=== PATIENT | female | born 1955 | race Caucasian/White ===

== ENCOUNTER → 2018-12-11 09:52 | Outpatient (CLI) | payer MEDICARE, SELFPAY ==
--- NOTE | 2018-12-11 09:54 | US_ITS ---
US Arterial Lower Ext Rest HISTORY: Hypertension. Diabetes. Hyperlipidemia. PVD. Bilateral rest pain bilateral claudication bilateral weak pulses bilateral skin color changes. Left great toe ulcer TECHNIQUE: Segmental pressures obtained of both right and left leg. These are compared to brachial blood pressure to yield index at each level sampled including summary SARAH. The data sheets from the procedure are available in PACS FINDINGS Rest study only performed today No prior studies available for comparison. Blood pressures reported are in millimeters mercury. ========= Right SARAH = 1.0 Right TBI = 0.8 Brachial BP: 141 Thigh BP: BP 142 with index 1.01 Calf BP: 140 with index 0.99 Ankle PT: 144 with index 1.02 Ankle DP : BP 147 with index 1.01 Digit =BP 112 with index 0.79 ========= Left SARAH = 1.1 Left TBI = 0.8 Brachial BPD: 140 Thigh BP: BP 157 with index 1.11 Calf BP: BP 131 with index 0.93 Ankle PT:BP 159 with index 1.13 Ankle DP: BP 138 with index 0.98 Digit = BP 118 with index 0.84 Pulses and waveforms: Normal bilaterally ABIs reveal no significant flow reduction in either leg Adequate flow to the toe bilateral suggested by TBI IMPRESSION:...... Normal pulses and waveforms bilateral Right SARAH = 1.0 Right TBI = 0.8 Left SARAH = 1.1 Left TBI = 0.8
== END ==
PROVIDERS: Visit Provider Podiatrist
DX: R09.89 Other specified symptoms and signs involving the circulatory and respiratory systems (principal)
CPT/HCPCS: 93923